=== PATIENT | male | born 1980 | race African-American/Black ===

== ENCOUNTER 2022-02-07 17:07 | Emergency (ER) | payer OTHER ==
[~2022-02-07] VITALS: Ht 175.3 cm; Wt 74.0 kg
[2022-02-07] MEDS ORDERED: AMOXICILLIN500 MG PO ×2 (20:36→20:37)
[2022-02-07 21:21] VITALS: BP 125/85
== END 2022-02-07 21:21 | disposition home or self-care (01) | DRG 159 ==
LOC: ED 17:07
DX: S02.5XXA Fracture of tooth (traumatic), initial encounter for closed fracture (principal); X58.XXXA Exposure to other specified factors, initial encounter